=== PATIENT | female | born 1975 | race Caucasian/White ===

== ENCOUNTER 2017-10-01 13:22 | Inpatient (IN) | payer BC ==
[~2017-10-01] VITALS: Ht 170.2 cm; Wt 118.5 kg
[~2017-10-01 13:22] MED LIST: BUTA1CAP31 PO; CAND1TAB2 PO; CLON0.5T3 PO; CRESTOR10 MG PO; CYCL-331 PO; ELET20TA PO; HYDR-971 PO; INSU100V13 SQ; METF500T4 PO; METH-37 PO; METO10TA81 PO; ONDA4TAB10 PO; PRAZ5CAP2 PO; PREG50CA PO; QUIN1TAB PO; SERT100T PO; SERT50TA PO; SITA1TAB11 PO; WARF10TA45 PO
[2017-10-01] MEDS ORDERED: VANCOMYCIN PER PHARMACY MC PRN (15:15)
[2017-10-01] MEDS ORDERED: IV NORMAL SALINE 1,000ML 1,000 ML IV ONE (15:15)
[2017-10-01 15:28] LABS: BASO % 1 % (0-3); EOS % 1 % (0-3); HEMATOCRIT 43.8 % (36.0-47.0); HEMOGLOBIN 14.9 g/dL (12.0-15.5); LYMPH # 1.4 x10^3/uL (1.0-4.8); LYMPH % 22 % (24-48); MEAN CORPUSCULAR HEMOGLOBIN 29 pg (25-35); MEAN CORPUSCULAR HGB CONC 34 g/dL (31-37); MEAN CORPUSCULAR VOLUME 85 fL (79-100); MONO # 0.7 x10^3/uL (0.0-1.1); MONO % 10 % (0-9); NEUT # 4.2 x10^3uL (1.8-7.7); NEUT % 67 % (31-73); PLATELET COUNT 203 x10^3/uL (140-400); RED BLOOD COUNT 5.15 x10^6/uL (3.50-5.40); RED CELL DISTRIBUTION WIDTH 13.8 % (11.5-14.5); WHITE BLOOD COUNT 6.3 x10^3/uL (4.0-11.0)
[2017-10-01] MEDS ORDERED: VANCOMYCIN 2 GM in IV NORMAL SALINE 500ML 500 ML IV ONE ×4 (15:30)
[2017-10-01 15:35] LABS: CALCIUM 9.5 mg/dL (8.5-10.1); CREATININE 0.6 mg/dL (0.6-1.0); GFR 110.2; POTASSIUM 3.8 mmol/L (3.5-5.1)
--- NOTE | 2017-10-01 16:02 | PHYS DOC ---
Past History Past Medical History: Anxiety, Depression, Diabetes, DVT, Gallstones, High Cholesterol, Kidney Stones, Migraines, Ovarian Cyst, Other Past Surgical History: Cholecystectomy, Tonsillectomy, Tubal ligation, Other Alcohol Use: None Drug Use: None Adult General Chief Complaint Chief Complaint: FOOT INJURY PAIN [facility] HPI Patient is a 41 year old F who presents with foot pain. 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 She was given a shot and an oral antibiotic at that time and told that her symptoms should improve however over the past 24-48 hours her symptoms have worsened. She has developed moderate redness swelling and pain over the entire right foot Review of Systems Review of Systems Constitutional: Denies fever or chills [] Eyes: Denies change in visual acuity, redness, or eye pain [] HENT: Denies nasal congestion or sore throat [] Respiratory: Denies cough or shortness of breath [] Cardiovascular: No additional information not addressed in HPI [] GI: Denies abdominal pain, nausea, vomiting, bloody stools or diarrhea [] : Denies dysuria or hematuria [] Musculoskeletal: Denies back pain or joint pain [] Integument: Negative except history of present illness Neurologic: Denies headache, focal weakness or sensory changes [] Endocrine: Denies polyuria or polydipsia [] All other systems were reviewed and found to be within normal limits, except as documented in this note. Family History Family History No pertinent family medical history was reported Current Medications Current Medications Current medications were reviewed Current Medications Medications (Trade) Dose Ordered Sig/Haja Start Time Stop Time Status Last Admin Dose Admin Sodium Chloride 1,000 ml @ 1,000 mls/hr 1X ONCE 10/01/17 15:15 10/01/17 16:14 10/01/17 15:26 1,000 MLS/HR Vancomycin HCl (Vanco Per Pharmacy) 1 each PRN DAILY PRN 10/01/17 15:15 Vancomycin HCl 2 gm/Sodium Chloride 500 ml @ 250 mls/hr 1X ONCE 10/01/17 15:30 10/01/17 17:29 10/01/17 15:41 250 MLS/HR Allergies Allergies Allergies Coded Allergies Type Severity Reaction Last Updated Verified Penicillins Allergy Severe Anaphylaxis 04/30/15 Yes orange Allergy Intermediate Hives 04/30/15 Yes propoxyphene Allergy Intermediate 04/28/16 Yes Physical Exam Physical Exam Constitutional: Well developed, well nourished, no acute distress, non-toxic appearance. [] HENT: Normocephalic, atraumatic, Eyes: EOMI, conjunctiva normal, no discharge. [] Neck: Normal range of motion, no tenderness, supple, no stridor. [] Cardiovascular:Heart rate regular rhythm, no murmur [] Lungs & Thorax: Bilateral breath sounds clear to auscultation [] Abdomen: Bowel sounds normal, soft, no tenderness, no masses, no pulsatile masses. [] Skin: Right foot: Moderate erythema and edema of the entire foot with small laceration noted between the fourth and fifth toe. Laceration was noted to have minimal drainage. Moderate pain was noted. Back: No tenderness, no CVA tenderness. [] Extremities: No tenderness, no cyanosis, no clubbing, ROM intact, no edema. [] Neurologic: Alert and oriented X 3, normal motor function, normal sensory function, no focal deficits noted. [] Psychologic: Affect normal, judgement normal, mood normal. [] Current Patient Data Vital Signs Vital Signs Date Time Temp Pulse Resp B/P (MAP) Pulse Ox O2 Delivery O2 Flow Rate FiO2 10/01/17 13:38 98.8 92 16 98 Room Air Lab Results Laboratory Tests Test 10/01/17 15:13 White Blood Count 6.3 x10^3/uL (4.0-11.0) Red Blood Count 5.15 x10^6/uL (3.50-5.40) Hemoglobin 14.9 g/dL (12.0-15.5) Hematocrit 43.8 % (36.0-47.0) Mean Corpuscular Volume 85 fL (79-100) Mean Corpuscular Hemoglobin 29 pg (25-35) Mean Corpuscular Hemoglobin Concent 34 g/dL (31-37) Red Cell Distribution Width 13.8 % (11.5-14.5) Platelet Count 203 x10^3/uL (140-400) Neutrophils (%) (Auto) 67 % (31-73) Lymphocytes (%) (Auto) 22 % (24-48) L Monocytes (%) (Auto) 10 % (0-9) H Eosinophils (%) (Auto) 1 % (0-3) Basophils (%) (Auto) 1 % (0-3) Neutrophils # (Auto) 4.2 x10^3uL (1.8-7.7) Lymphocytes # (Auto) 1.4 x10^3/uL (1.0-4.8) Monocytes # (Auto) 0.7 x10^3/uL (0.0-1.1) Eosinophils # (Auto) 0.0 x10^3/uL (0.0-0.7) Basophils # (Auto) 0.0 x10^3/uL (0.0-0.2) Sodium Level 137 mmol/L (136-145) Potassium Level 3.8 mmol/L (3.5-5.1) Chloride Level 101 mmol/L (98-107) Carbon Dioxide Level 26 mmol/L (21-32) Anion Gap 10 (6-14) Blood Urea Nitrogen 7 mg/dL (7-20) Creatinine 0.6 mg/dL (0.6-1.0) Estimated GFR (Cockcroft-Gault) 110.2 Glucose Level 299 mg/dL (70-99) H Lactic Acid Level 1.4 mmol/L (0.4-2.0) Calcium Level 9.5 mg/dL (8.5-10.1) EKG EKG [] Radiology/Procedures Radiology/Procedures [] Course & Med Decision Making Course & Med Decision Making Pertinent Labs and Imaging studies reviewed. (See chart for details) [] Dragon Disclaimer Dragon Disclaimer This electronic medical record was generated, in whole or in part, using a voice recognition dictation system. Departure Departure: Impression: Primary Impression: Uncontrolled diabetes mellitus Additional Impressions: Diabetic foot infection Cellulitis Disposition: ADMITTED INPATIENT Referrals: NON,STAFF (PCP) Problem Qualifiers Primary Impression: Uncontrolled diabetes mellitus Diabetes mellitus type: type 2 Diabetes mellitus complication status: with unspecified complications Diabetes mellitus watermelon inspector insulin use: with watermelon inspector use Qualified Codes: E11.8 - Type 2 diabetes mellitus with unspecified complications; E11.65 - Type 2 diabetes mellitus with hyperglycemia; Z79.4 - intermodal customer service (current) use of insulin Additional Impressions: Cellulitis Site of cellulitis: extremity Site of cellulitis of extremity: lower extremity Laterality: right Qualified Codes: L03.115 - Cellulitis of right lower limb YELENA KAY MD Oct 01, 2017 16:02
[2017-10-01] MEDS ORDERED: diphenhydrAMINE 50 MG/ML VIAL IVP ONE (17:30)
[2017-10-01] MEDS ORDERED: ACETAMINOPHEN 325 MG TABLET PO PRN (17:45)
[2017-10-01] MEDS ORDERED: DEXTROSE 50% 25 GM / 50ML DISP.SYRIN. IV PRN (17:45)
[2017-10-01 17:51] VITALS: BP 127/84
[2017-10-01] MEDS ORDERED: WARF7.5T48 PO (18:44)
[2017-10-01] MEDS ORDERED: LISI10TA2 PO (18:44)
[2017-10-01] MEDS ORDERED: METF500T4 PO (18:44)
[2017-10-01] MEDS ORDERED: WARF-78 PO (18:44)
[2017-10-01] MEDS ORDERED: INSU100I13 SQ (19:03)
[2017-10-01] MEDS ORDERED: DIPH25CA58 PO (19:03)
[2017-10-01] MEDS ORDERED: INSU100I17 SQ (19:03)
[2017-10-01] MEDS: VANCOMYCIN PER PHARMACY MC PRN (19:47)
[2017-10-01 19:51] VITALS: BP 122/75
[2017-10-01] MEDS ORDERED: INSULIN DETEMIR 300 UNITS/3 ML INSULN.PEN. SQ SCH (21:00)
[2017-10-01] MEDS: diphenhydrAMINE HCL 25 MG CAPSULE PO PRN (21:15)
[2017-10-01] MEDS: metFORMIN 500 MG TABLET PO SCH (21:16)
[2017-10-01] MEDS: INSULIN ASPART 300 UNITS/3 ML INSULN.PEN SQ SCH (21:18)
[2017-10-01 23:08] VITALS: BP 135/85
[2017-10-01] MEDS ORDERED: traMADol 50 MG TABLET PO PRN (23:30)
[2017-10-02] MEDS: diphenhydrAMINE HCL 25 MG CAPSULE PO PRN ×2 (03:07→15:57)
[2017-10-02] MEDS: VANCOMYCIN 1.75 GM in IV NORMAL SALINE 500ML 500 ML IV SCH ×2 (03:08→15:56)
[2017-10-02 05:35] VITALS: BP 125/82
[2017-10-02 06:46] LABS: BASO % 0 % (0-3); EOS # 0.1 x10^3/uL (0.0-0.7); EOS % 1 % (0-3); HEMATOCRIT 39.8 % (36.0-47.0); HEMOGLOBIN 13.7 g/dL (12.0-15.5); LYMPH # 1.1 x10^3/uL (1.0-4.8); LYMPH % 22 % (24-48); MEAN CORPUSCULAR HEMOGLOBIN 29 pg (25-35); MEAN CORPUSCULAR HGB CONC 34 g/dL (31-37); MEAN CORPUSCULAR VOLUME 85 fL (79-100); MONO # 0.5 x10^3/uL (0.0-1.1); MONO % 9 % (0-9); NEUT # 3.6 x10^3uL (1.8-7.7); NEUT % 68 % (31-73); PLATELET COUNT 175 x10^3/uL (140-400); RED CELL DISTRIBUTION WIDTH 13.5 % (11.5-14.5); WHITE BLOOD COUNT 5.2 x10^3/uL (4.0-11.0)
[2017-10-02 06:54] LABS: CALCIUM 8.4 mg/dL (8.5-10.1); CREATININE 0.6 mg/dL (0.6-1.0); GFR 110.2; POTASSIUM 3.6 mmol/L (3.5-5.1)
[2017-10-02] MEDS: INSULIN ASPART 300 UNITS/3 ML INSULN.PEN SQ SCH ×6 (07:30→21:00)
[2017-10-02] MEDS ORDERED: INSULIN ASPART 300 UNITS/3 ML INSULN.PEN SQ SCH (08:00)
[2017-10-02] MEDS: metFORMIN 500 MG TABLET PO SCH (08:05)
[2017-10-02] MEDS: LISINOPRIL 10 MG TABLET PO SCH (08:05)
[2017-10-02] MEDS ORDERED: IOHEXOL 300 MG/ML 75 ML VIAL. IV ONE (09:30)
[2017-10-02] MEDS ORDERED: MEROPENEM IV Push 1 GM VIAL. IVP SCH (10:00)
--- NOTE | 2017-10-02 10:11 | RAD ---
Indication: Cellulitis, laceration between fourth and fifth toes, swelling, redness Technique: CT of the right foot and ankle with 75 mL of Omnipaque 300 with multi planar reformats. Comparison: None Findings: No acute fracture or dislocation. No cortical erosion or periosteal reaction. No joint space narrowing or productive changes to suggest arthritic process. No discrete fluid collection. No soft tissue gas. Diffuse edema is seen in the dorsum of the foot. No skin ulcerations. No ankle edema. The vessels are patent. Ankle mortise is intact. Impression: Edema of the dorsum of the foot without discrete loculated fluid collection to suggest abscess. No soft tissue gas to suggest necrotizing process. No periosteal reaction or cortical erosion to suggest osteomyelitis.
[2017-10-02] MEDS: CLINDAMYCIN 600MG PREMIX 50 ML IV SCH ×3 (10:33→20:26)
[2017-10-02 11:13] VITALS: BP 118/80
[2017-10-02] MEDS ORDERED: MEROPENEM 1 GM in IV NORMAL SALINE 100ML 100 ML IV SCH (14:00)
[2017-10-02] MEDS ORDERED: HYDROcodone/APAP 5/325MG 1 TAB TABLET PO PRN (14:30)
--- NOTE | 2017-10-02 15:21 | HP ---
ADMIT DATE: 10/02/2017 REASON FOR ADMISSION: Cellulitis of the right foot. HISTORY OF PRESENT ILLNESS: This is a 41-year-old female with type 2 diabetes who was seen by her transplant registered nurse a couple of days ago at [facility]. She was examined. She developed some foot, her foot started hurting her. While at the transplant registered nurse's office, her insulin was adjusted. Then, her foot started hurting her. She did have a cut between her toes. She went to the [facility] ER, she was given a shot of antibiotic and 4 pills. It was worse overnight, so she presented to the Emergency Room at [facility] yesterday. PAST MEDICAL HISTORY: Factor V Leiden, hypertension, DVTs, gallstones, hypercholesterolemia, kidney stones, ovarian cysts, anxiety, depression, fibromyalgia. PAST SURGICAL HISTORY: She has had ear surgery, tonsillectomy, adenoidectomy, thyroid surgery, cholecystectomy, cysts on her ovaries, tubal ligation, lymph node removal. SOCIAL HISTORY: Does not smoke, do drugs or drink. 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 REVIEW OF SYSTEMS: Positive for upper respiratory symptoms. No change in her weight, low grade fever and right foot pain. OBJECTIVE: VITAL SIGNS: Blood pressure 125/82, temperature 98.4, had a 99.9 earlier yesterday evening, blood pressure 118/80. HEENT: TMs: Right TM is dull and retracted. Left TM normal. Nose with swollen turbinates and some rhinorrhea. Throat is clear. She does have a large tongue relative to small posterior pharynx. NECK: Supple without adenopathy. LUNGS: Clear to auscultation. CARDIOVASCULAR: Regular rhythm and rate without murmur. ABDOMEN: Soft, nontender, no masses palpated. EXTREMITIES: Right extremity, very swollen, erythematous, tender, particularly between the fourth and fifth toes. There is a cut there. Pulses are intact. DIAGNOSTIC DATA: CT of the foot reveals no evidence of osteomyelitis or gas gangrene or fasciitis. LABORATORY DATA: CBC normal except for the elevated monocytes. Chemistry: Glucoses 299, 217, 198. INR is 2.6. ASSESSMENT: 1. Cellulitis of the right lower extremity 2. Type 2 diabetes with hyperglycemia. 3. Long-term use of anticoagulants. 4. She is adequately coagulated. 5. Factor V Leiden present on admission. 6. Fibromyalgia. 7. Upper respiratory infection. PLAN: We will give her some Mucinex for upper respiratory infection, IV antibiotics, elevation and controlling her blood sugar. TANYA FRANCO DO DR: JACKLYN/amando JOB#: [id number] / [id number]
[2017-10-02] MEDS ORDERED: WARFARIN 7.5 MG TABLET. PO SCH ×2 (16:00)
[2017-10-02 19:40] VITALS: BP 99/60
[2017-10-02] MEDS ORDERED: INSULIN DETEMIR 300 UNITS/3 ML INSULN.PEN. SQ SCH (21:00)
[2017-10-02] MEDS: KETOROLAC 30 MG/ML VIAL. IV PRN (21:26)
[2017-10-02 22:56] VITALS: BP 102/68
[2017-10-03] MEDS: diphenhydrAMINE HCL 25 MG CAPSULE PO PRN (03:05)
[2017-10-03] MEDS: CLINDAMYCIN 600MG PREMIX 50 ML IV SCH ×3 (03:54→21:34)
[2017-10-03 04:06] LABS: VANC TR 6.2 mcg/mL (10.0-20.0)
[2017-10-03] MEDS: VANCOMYCIN 1.75 GM in IV NORMAL SALINE 500ML 500 ML IV SCH ×3 (04:28→23:18)
[2017-10-03 05:10] VITALS: BP 107/71
[2017-10-03] MEDS: VANCOMYCIN PER PHARMACY MC PRN (07:49)
[2017-10-03] MEDS: LISINOPRIL 10 MG TABLET PO SCH (08:36)
[2017-10-03] MEDS: INSULIN ASPART 300 UNITS/3 ML INSULN.PEN SQ SCH ×7 (08:39→21:00)
[2017-10-03] MEDS ORDERED: HYDROcodone/APAP 10/325 1 TAB TABLET PO PRN (08:45)
[2017-10-03] MEDS ORDERED: HYDROcodone/APAP 5/325MG 1 TAB TABLET PO PRN (08:45)
[2017-10-03 09:38] LABS: BASO % 1 % (0-3); EOS # 0.1 x10^3/uL (0.0-0.7); EOS % 1 % (0-3); HEMATOCRIT 39.1 % (36.0-47.0); HEMOGLOBIN 13.4 g/dL (12.0-15.5); LYMPH # 1.1 x10^3/uL (1.0-4.8); LYMPH % 23 % (24-48); MEAN CORPUSCULAR HEMOGLOBIN 29 pg (25-35); MEAN CORPUSCULAR HGB CONC 34 g/dL (31-37); MEAN CORPUSCULAR VOLUME 85 fL (79-100); MONO # 0.4 x10^3/uL (0.0-1.1); MONO % 8 % (0-9); NEUT # 3.3 x10^3uL (1.8-7.7); NEUT % 68 % (31-73); PLATELET COUNT 159 x10^3/uL (140-400); RED BLOOD COUNT 4.58 x10^6/uL (3.50-5.40); RED CELL DISTRIBUTION WIDTH 13.9 % (11.5-14.5); WHITE BLOOD COUNT 4.8 x10^3/uL (4.0-11.0)
[2017-10-03 09:52] LABS: ALBUMIN 2.4 g/dL (3.4-5.0); ALBUMIN/GLOBULIN RATIO 0.6 (1.0-1.7); CALCIUM 8.3 mg/dL (8.5-10.1); CREATININE 0.7 mg/dL (0.6-1.0); GFR 92.2; MAGNESIUM 1.3 mg/dL (1.8-2.4); POTASSIUM 3.5 mmol/L (3.5-5.1); TOTAL BILIRUBIN 0.3 mg/dL (0.2-1.0); TOTAL PROTEIN 6.2 g/dL (6.4-8.2)
--- NOTE | 2017-10-03 10:09 | PDOC ---
SUBJECTIVE: Some pain issues yesterday evening. Nurses reported her picking at the toe. Has fake fingernails. Discussed this with her. She denies. Toradol Iv was ordered and elevation which helped. OBJECTIVE: Problems: Problems Medical Problems: (1) Cellulitis Status: Acute (2) Diabetic foot infection Status: Acute (3) Uncontrolled diabetes mellitus Status: Acute 1. Cellulitis of the right lower foot with small ulcer between the 4th and 5th toes 2. Type 2 diabetes with hyperglycemia. 3. Long-term use of anticoagulants. 4. She is adequately coagulated. 5. Factor V Leiden present on admission. 6. Fibromyalgia. 7. Upper respiratory infection. 8. Pain management Vital Signs: Vital Signs Date Time Temp Pulse Resp B/P (MAP) Pulse Ox O2 Delivery O2 Flow Rate FiO2 10/03/17 08:50 Room Air 10/03/17 08:36 66 107/71 10/03/17 05:10 98.3 18 94 I & O Intake and Output 10/03/17 07:00 Intake Total 2151 ml Balance 2151 ml Intake Oral 1460 ml IV Total 691 ml # Voids 3 Labs: Laboratory Tests Test 10/01/17 15:13 10/01/17 20:07 10/02/17 06:06 10/02/17 07:39 White Blood Count 6.3 x10^3/uL (4.0-11.0) 5.2 x10^3/uL (4.0-11.0) Red Blood Count 5.15 x10^6/uL (3.50-5.40) 4.70 x10^6/uL (3.50-5.40) Hemoglobin 14.9 g/dL (12.0-15.5) 13.7 g/dL (12.0-15.5) Hematocrit 43.8 % (36.0-47.0) 39.8 % (36.0-47.0) Mean Corpuscular Volume 85 fL (79-100) 85 fL (79-100) Mean Corpuscular Hemoglobin 29 pg (25-35) 29 pg (25-35) Mean Corpuscular Hemoglobin Concent 34 g/dL (31-37) 34 g/dL (31-37) Red Cell Distribution Width 13.8 % (11.5-14.5) 13.5 % (11.5-14.5) Platelet Count 203 x10^3/uL (140-400) 175 x10^3/uL (140-400) Neutrophils (%) (Auto) 67 % (31-73) 68 % (31-73) Lymphocytes (%) (Auto) 22 % (24-48) 22 % (24-48) Monocytes (%) (Auto) 10 % (0-9) 9 % (0-9) Eosinophils (%) (Auto) 1 % (0-3) 1 % (0-3) Basophils (%) (Auto) 1 % (0-3) 0 % (0-3) Neutrophils # (Auto) 4.2 x10^3uL (1.8-7.7) 3.6 x10^3uL (1.8-7.7) Lymphocytes # (Auto) 1.4 x10^3/uL (1.0-4.8) 1.1 x10^3/uL (1.0-4.8) Monocytes # (Auto) 0.7 x10^3/uL (0.0-1.1) 0.5 x10^3/uL (0.0-1.1) Eosinophils # (Auto) 0.0 x10^3/uL (0.0-0.7) 0.1 x10^3/uL (0.0-0.7) Basophils # (Auto) 0.0 x10^3/uL (0.0-0.2) 0.0 x10^3/uL (0.0-0.2) Sodium Level 137 mmol/L (136-145) 139 mmol/L (136-145) Potassium Level 3.8 mmol/L (3.5-5.1) 3.6 mmol/L (3.5-5.1) Chloride Level 101 mmol/L (98-107) 104 mmol/L (98-107) Carbon Dioxide Level 26 mmol/L (21-32) 26 mmol/L (21-32) Anion Gap 10 (6-14) 9 (6-14) Blood Urea Nitrogen 7 mg/dL (7-20) 6 mg/dL (7-20) Creatinine 0.6 mg/dL (0.6-1.0) 0.6 mg/dL (0.6-1.0) Estimated GFR (Cockcroft-Gault) 110.2 110.2 Glucose Level 299 mg/dL (70-99) 264 mg/dL (70-99) Lactic Acid Level 1.4 mmol/L (0.4-2.0) Calcium Level 9.5 mg/dL (8.5-10.1) 8.4 mg/dL (8.5-10.1) Glucose (Fingerstick) 299 mg/dL (70-99) 217 mg/dL (70-99) Prothrombin Time 26.3 SEC (9.4-11.4) Prothromb Time International Ratio 2.6 (0.9-1.1) Test 10/02/17 11:37 10/02/17 16:32 10/02/17 19:52 10/03/17 03:30 Glucose (Fingerstick) 198 mg/dL (70-99) 134 mg/dL (70-99) 208 mg/dL (70-99) Vancomycin Level Trough 6.2 mcg/mL (10.0-20.0) Vancomycin Last Dose Date 10/02/2017 Vancomycin Last Dose Time 1530 Test 10/03/17 07:34 10/03/17 09:30 Glucose (Fingerstick) 266 mg/dL (70-99) White Blood Count 4.8 x10^3/uL (4.0-11.0) Red Blood Count 4.58 x10^6/uL (3.50-5.40) Hemoglobin 13.4 g/dL (12.0-15.5) Hematocrit 39.1 % (36.0-47.0) Mean Corpuscular Volume 85 fL (79-100) Mean Corpuscular Hemoglobin 29 pg (25-35) Mean Corpuscular Hemoglobin Concent 34 g/dL (31-37) Red Cell Distribution Width 13.9 % (11.5-14.5) Platelet Count 159 x10^3/uL (140-400) Neutrophils (%) (Auto) 68 % (31-73) Lymphocytes (%) (Auto) 23 % (24-48) Monocytes (%) (Auto) 8 % (0-9) Eosinophils (%) (Auto) 1 % (0-3) Basophils (%) (Auto) 1 % (0-3) Neutrophils # (Auto) 3.3 x10^3uL (1.8-7.7) Lymphocytes # (Auto) 1.1 x10^3/uL (1.0-4.8) Monocytes # (Auto) 0.4 x10^3/uL (0.0-1.1) Eosinophils # (Auto) 0.1 x10^3/uL (0.0-0.7) Basophils # (Auto) 0.0 x10^3/uL (0.0-0.2) Prothrombin Time 25.3 SEC (9.4-11.4) Prothromb Time International Ratio 2.5 (0.9-1.1) Sodium Level 137 mmol/L (136-145) Potassium Level 3.5 mmol/L (3.5-5.1) Chloride Level 104 mmol/L (98-107) Carbon Dioxide Level 23 mmol/L (21-32) Anion Gap 10 (6-14) Blood Urea Nitrogen 8 mg/dL (7-20) Creatinine 0.7 mg/dL (0.6-1.0) Estimated GFR (Cockcroft-Gault) 92.2 BUN/Creatinine Ratio 11 (6-20) Glucose Level 321 mg/dL (70-99) Calcium Level 8.3 mg/dL (8.5-10.1) Magnesium Level 1.3 mg/dL (1.8-2.4) Total Bilirubin 0.3 mg/dL (0.2-1.0) Aspartate Amino Transf (AST/SGOT) 25 U/L (15-37) Alanine Aminotransferase (ALT/SGPT) 42 U/L (14-59) Alkaline Phosphatase 58 U/L (46-116) Total Protein 6.2 g/dL (6.4-8.2) Albumin 2.4 g/dL (3.4-5.0) Albumin/Globulin Ratio 0.6 (1.0-1.7) Physical Exam: HEENT: Still congested but now starting to be able to bring up her secretions Lungs: Clear to auscultation, positive cough sounds much looser than yesterday Cardiovascular, regular rhythm and rate Right foot decreased swelling and decreased erythema area between the fourth and fifth toes still very painful ,scant drainage ,, char filter tank tender head to touch ASSESSMENT: See above problems PLAN: Continue IV antibiotics, continue portable, discouraged from picking foot, moist packs to foot to encourage drainage, elevate foot. Plan for discharge tomorrow TANYA FRANCO DO Oct 03, 2017 10:09
[2017-10-03 11:32] VITALS: BP 129/79
[2017-10-03] MEDS: KETOROLAC 30 MG/ML VIAL. IV PRN ×2 (15:02→21:30)
[2017-10-03 15:47] VITALS: BP 131/91
[2017-10-03] MEDS ORDERED: WARFARIN 5 MG TABLET. PO SCH ×2 (16:00)
[2017-10-03 19:27] VITALS: BP 137/86
[2017-10-03] MEDS ORDERED: INSULIN DETEMIR 300 UNITS/3 ML INSULN.PEN. SQ SCH (21:00)
[2017-10-03] MEDS: LACTOBACILLUS RHAMNOSUS GG 1 CAPSULE. PO SCH (21:32)
[2017-10-03 23:01] VITALS: BP 148/84
[2017-10-04] MEDS: CLINDAMYCIN 600MG PREMIX 50 ML IV SCH (05:08)
[2017-10-04] MEDS: VANCOMYCIN 1.75 GM in IV NORMAL SALINE 500ML 500 ML IV SCH (05:50)
[2017-10-04] MEDS: KETOROLAC 30 MG/ML VIAL. IV PRN (05:55)
[2017-10-04 06:08] VITALS: BP 142/84
[2017-10-04 06:44] LABS: BASO % 1 % (0-3); EOS % 1 % (0-3); HEMATOCRIT 37.8 % (36.0-47.0); HEMOGLOBIN 13.1 g/dL (12.0-15.5); LYMPH # 1.1 x10^3/uL (1.0-4.8); LYMPH % 18 % (24-48); MEAN CORPUSCULAR HEMOGLOBIN 29 pg (25-35); MEAN CORPUSCULAR HGB CONC 35 g/dL (31-37); MEAN CORPUSCULAR VOLUME 83 fL (79-100); MONO # 0.4 x10^3/uL (0.0-1.1); MONO % 7 % (0-9); NEUT # 4.3 x10^3uL (1.8-7.7); NEUT % 73 % (31-73); PLATELET COUNT 185 x10^3/uL (140-400); RED BLOOD COUNT 4.54 x10^6/uL (3.50-5.40); RED CELL DISTRIBUTION WIDTH 13.6 % (11.5-14.5); WHITE BLOOD COUNT 5.9 x10^3/uL (4.0-11.0)
[2017-10-04 07:06] LABS: ALBUMIN 2.5 g/dL (3.4-5.0); ALBUMIN/GLOBULIN RATIO 0.7 (1.0-1.7); CALCIUM 8.4 mg/dL (8.5-10.1); CREATININE 0.6 mg/dL (0.6-1.0); GFR 110.2; MAGNESIUM 1.3 mg/dL (1.8-2.4); POTASSIUM 3.8 mmol/L (3.5-5.1); TOTAL BILIRUBIN 0.3 mg/dL (0.2-1.0); TOTAL PROTEIN 6.3 g/dL (6.4-8.2)
[2017-10-04 07:58] VITALS: BP 142/84
[2017-10-04] MEDS: LACTOBACILLUS RHAMNOSUS GG 1 CAPSULE. PO SCH (07:58)
[2017-10-04] MEDS: LISINOPRIL 10 MG TABLET PO SCH (07:58)
[2017-10-04] MEDS ORDERED: metFORMIN 500 MG TABLET PO SCH (08:00)
[2017-10-04] MEDS: INSULIN ASPART 300 UNITS/3 ML INSULN.PEN SQ SCH ×2 (08:04→08:05)
[2017-10-04] MEDS ORDERED: INSU100I13 SQ (10:09)
[2017-10-04] MEDS ORDERED: GUAI600T47 PO (10:09)
[2017-10-04] MEDS ORDERED: CLIN300C8 PO (10:09)
[2017-10-04] MEDS ORDERED: INSU100I17 SQ (10:09)
[2017-10-04] MEDS ORDERED: MAGN400T3 PO (10:09)
[2017-10-04] MEDS ORDERED: MAGNESIUM OXIDE 400 MG TABLET PO ONE (10:30)
--- NOTE | 2017-10-04 19:06 | PDOC3 ---
Discharge Summary Visit Information Date of Admission: Oct 01, 2017 Date of Discharge: Oct 04, 2017 Final Diagnosis Problems Medical Problems: (1) Cellulitis Status: Acute (2) Diabetic foot infection Status: Acute (3) Uncontrolled diabetes mellitus Status: Acute 1. Cellulitis of the right lower foot with small ulcer between the 4th and 5th toes 2. Type 2 diabetes with hyperglycemia. 3. Long-term use of anticoagulants. 4. She is adequately coagulated. 5. Factor V Leiden present on admission. 6. Fibromyalgia. 7. Upper respiratory infection. 8. Pain managemen 9. HYPOMAGNESEMIA 10 SLEEP APNEA SUSPECT Problems: Brief Hospital Course Allergies Allergies Coded Allergies Type Severity Reaction Last Updated Verified Penicillins Allergy Severe Anaphylaxis 04/30/15 Yes orange Allergy Intermediate Hives 04/30/15 Yes propoxyphene Allergy Intermediate 04/28/16 Yes Vital Signs Vital Signs Date Time Temp Pulse Resp B/P (MAP) Pulse Ox O2 Delivery O2 Flow Rate FiO2 10/04/17 08:00 Room Air 10/04/17 07:58 82 142/84 10/04/17 06:08 99.2 20 97 Lab Results Laboratory Tests Test 10/02/17 19:52 10/03/17 03:30 10/03/17 07:34 10/03/17 09:30 Glucose (Fingerstick) 208 mg/dL (70-99) 266 mg/dL (70-99) Vancomycin Level Trough 6.2 mcg/mL (10.0-20.0) Vancomycin Last Dose Date 10/02/2017 Vancomycin Last Dose Time 1530 White Blood Count 4.8 x10^3/uL (4.0-11.0) Red Blood Count 4.58 x10^6/uL (3.50-5.40) Hemoglobin 13.4 g/dL (12.0-15.5) Hematocrit 39.1 % (36.0-47.0) Mean Corpuscular Volume 85 fL (79-100) Mean Corpuscular Hemoglobin 29 pg (25-35) Mean Corpuscular Hemoglobin Concent 34 g/dL (31-37) Red Cell Distribution Width 13.9 % (11.5-14.5) Platelet Count 159 x10^3/uL (140-400) Neutrophils (%) (Auto) 68 % (31-73) Lymphocytes (%) (Auto) 23 % (24-48) Monocytes (%) (Auto) 8 % (0-9) Eosinophils (%) (Auto) 1 % (0-3) Basophils (%) (Auto) 1 % (0-3) Neutrophils # (Auto) 3.3 x10^3uL (1.8-7.7) Lymphocytes # (Auto) 1.1 x10^3/uL (1.0-4.8) Monocytes # (Auto) 0.4 x10^3/uL (0.0-1.1) Eosinophils # (Auto) 0.1 x10^3/uL (0.0-0.7) Basophils # (Auto) 0.0 x10^3/uL (0.0-0.2) Prothrombin Time 25.3 SEC (9.4-11.4) Prothromb Time International Ratio 2.5 (0.9-1.1) Sodium Level 137 mmol/L (136-145) Potassium Level 3.5 mmol/L (3.5-5.1) Chloride Level 104 mmol/L (98-107) Carbon Dioxide Level 23 mmol/L (21-32) Anion Gap 10 (6-14) Blood Urea Nitrogen 8 mg/dL (7-20) Creatinine 0.7 mg/dL (0.6-1.0) Estimated GFR (Cockcroft-Gault) 92.2 BUN/Creatinine Ratio 11 (6-20) Glucose Level 321 mg/dL (70-99) Calcium Level 8.3 mg/dL (8.5-10.1) Magnesium Level 1.3 mg/dL (1.8-2.4) Total Bilirubin 0.3 mg/dL (0.2-1.0) Aspartate Amino Transf (AST/SGOT) 25 U/L (15-37) Alanine Aminotransferase (ALT/SGPT) 42 U/L (14-59) Alkaline Phosphatase 58 U/L (46-116) Total Protein 6.2 g/dL (6.4-8.2) Albumin 2.4 g/dL (3.4-5.0) Albumin/Globulin Ratio 0.6 (1.0-1.7) Test 10/03/17 11:58 10/03/17 16:38 10/03/17 21:05 10/04/17 06:14 Glucose (Fingerstick) 246 mg/dL (70-99) 80 mg/dL (70-99) 236 mg/dL (70-99) White Blood Count 5.9 x10^3/uL (4.0-11.0) Red Blood Count 4.54 x10^6/uL (3.50-5.40) Hemoglobin 13.1 g/dL (12.0-15.5) Hematocrit 37.8 % (36.0-47.0) Mean Corpuscular Volume 83 fL (79-100) Mean Corpuscular Hemoglobin 29 pg (25-35) Mean Corpuscular Hemoglobin Concent 35 g/dL (31-37) Red Cell Distribution Width 13.6 % (11.5-14.5) Platelet Count 185 x10^3/uL (140-400) Neutrophils (%) (Auto) 73 % (31-73) Lymphocytes (%) (Auto) 18 % (24-48) Monocytes (%) (Auto) 7 % (0-9) Eosinophils (%) (Auto) 1 % (0-3) Basophils (%) (Auto) 1 % (0-3) Neutrophils # (Auto) 4.3 x10^3uL (1.8-7.7) Lymphocytes # (Auto) 1.1 x10^3/uL (1.0-4.8) Monocytes # (Auto) 0.4 x10^3/uL (0.0-1.1) Eosinophils # (Auto) 0.0 x10^3/uL (0.0-0.7) Basophils # (Auto) 0.0 x10^3/uL (0.0-0.2) Sodium Level 138 mmol/L (136-145) Potassium Level 3.8 mmol/L (3.5-5.1) Chloride Level 105 mmol/L (98-107) Carbon Dioxide Level 25 mmol/L (21-32) Anion Gap 8 (6-14) Blood Urea Nitrogen 6 mg/dL (7-20) Creatinine 0.6 mg/dL (0.6-1.0) Estimated GFR (Cockcroft-Gault) 110.2 BUN/Creatinine Ratio 10 (6-20) Glucose Level 241 mg/dL (70-99) Calcium Level 8.4 mg/dL (8.5-10.1) Magnesium Level 1.3 mg/dL (1.8-2.4) Total Bilirubin 0.3 mg/dL (0.2-1.0) Aspartate Amino Transf (AST/SGOT) 23 U/L (15-37) Alanine Aminotransferase (ALT/SGPT) 41 U/L (14-59) Alkaline Phosphatase 59 U/L (46-116) Total Protein 6.3 g/dL (6.4-8.2) Albumin 2.5 g/dL (3.4-5.0) Albumin/Globulin Ratio 0.7 (1.0-1.7) Test 10/04/17 07:37 Glucose (Fingerstick) 216 mg/dL (70-99) Brief Hospital Course Ms. Gee is a 41 old [sex] who presented with [ ]-old female with type 2 diabetes who was seen by her channel director a couple of days ago at [place]. She was examined. She developed some foot, her foot started hurting her. While at the channel director's office, her insulin was adjusted. Then, her foot started hurting her. She did have a cut between her toes. She went to the [place] ER, she was given a shot of antibiotic and 4 pills. It was worse overnight, so she presented to the Emergency Room at [facility] yesterday.SHE WAS TREATED WITH IV ANTIBIOTS AND WARM SOAKS TO THE OPEN AREA. HER PAIN WAS MANAGED WITH TORADOL AND HYDROCODONE. SHE FAILED HER NOCTURNAL OXIMITRY AND WILL NEED A FORMAL SLEEP STUDY. Discharge Information Condition at Discharge: Improved, Stable Disposition/Orders: D/C to Home Dischare Medications Current Medications Sodium Chloride 1,000 ml @ 1,000 mls/hr 1X ONCE IV Last administered on at 15:26; Start 10/01/17 at 15:15; Stop 10/01/17 at 16:14; Status DC Vancomycin HCl (Vanco Per Pharmacy) 1 each PRN DAILY PRN MC SEE COMMENTS; Start 10/01/17 at 15:15; Stop 10/01/17 at 17:53; Status DC Vancomycin HCl 2 gm/Sodium Chloride 500 ml @ 250 mls/hr 1X ONCE IV ; Start 10/01/17 at 15:30; Stop 10/01/17 at 17:29; Status Cancel Vancomycin HCl 2 gm/Sodium Chloride 500 ml @ 250 mls/hr 1X ONCE IV Last administered on 10/01/17at 15:41; Start 10/01/17 at 15:30; Stop 10/01/17 at 17:29; Status DC Diphenhydramine HCl (Benadryl) 25 mg 1X ONCE IVP Last administered on at 17:12; Start 10/01/17 at 17:30; Stop 10/01/17 at 17:31; Status DC Insulin Aspart (NovoLOG) 0-5 UNITS QIDACHS SQ Last administered on 10/04/17at 08 :04; Start 10/01/17 at 21:00; Stop 10/04/17 at 11:32; Status DC Dextrose 12.5 gm PRN Q15MIN PRN IV SEE COMMENTS; Start 10/01/17 at 17:45; Stop 10/04/17 at 11:32; Status DC Acetaminophen (Tylenol) 650 mg PRN Q6HRS PRN PO PAIN / TEMP Last administered on 10/01/17at 19:29; Start 10/01/17 at 17:45; Stop 10/04/17 at 11:32; Status DC Vancomycin HCl (Vanco Per Pharmacy) 1 each PRN DAILY PRN MC SEE COMMENTS Last administered on 10/03/17at 07:49; Start 10/01/17 at 17:45; Stop 10/04/17 at 11:32 ; Status DC Warfarin Sodium (Coumadin Per Pharmacy) 1 each PRN DAILY PRN MC SEE COMMENTS Last administered on 10/02/17at 14:27; Start 10/01/17 at 17:45; Stop 10/04/17 at 11:32; Status DC Vancomycin HCl 1.75 gm/Sodium Chloride 500 ml @ 250 mls/hr Q12H IV Last administered on 10/03/17at 04:28; Start 10/02/17 at 03:30; Stop 10/03/17 at 07:25 ; Status DC Vancomycin HCl 1 each 1X ONCE MC Last administered on 10/03/17at 03:00; Start 10/03/17 at 03:00; Stop 10/03/17 at 03:02; Status DC Diphenhydramine HCl (Benadryl) 25 mg PRN Q6HRS PRN PO ITCHING Last administered on 10/03/17at 03:05; Start 10/01/17 at 19:00; Stop 10/04/17 at 11:32 ; Status DC Insulin Aspart (NovoLOG) 30 units TIDWMEALS SQ ; Start 10/02/17 at 08:00; Stop 10/02/17 at 08:04; Status DC Lisinopril (Prinivil) 10 mg DAILY PO Last administered on 10/04/17at 07:58; Start 10/02/17 at 09:00; Stop 10/04/17 at 11:32; Status DC Metformin HCl (Glucophage) 500 mg BID PO Last administered on 10/02/17at 08:05; Start 10/01/17 at 21:00; Stop 10/02/17 at 09:49; Status DC Warfarin Sodium (Coumadin) 5 mg QTUTHSASU PO ; Start 10/03/17 at 16:00; Stop 08/10 at 16:00; Status DC Warfarin Sodium (Coumadin) 7.5 mg QMWF PO ; Start 10/02/17 at 16:00; Stop at 16:00; Status DC Insulin Detemir (Levemir) 20 units QHS SQ Last administered on 10/01/17at 21:17; Start 10/01/17 at 21:00; Stop 10/02/17 at 08:04; Status DC Tramadol HCl (Ultram) 50 mg PRN Q6HRS PRN PO MODERATE PAIN Last administered on 10/01/17at 23:35; Start 10/01/17 at 23:30; Stop 10/03/17 at 08:40; Status DC Insulin Aspart (NovoLOG) 32 units TIDWMEALS SQ Last administered on 10/04/17at 08:05; Start 10/02/17 at 12:00; Stop 10/04/17 at 11:32; Status DC Insulin Detemir (Levemir) 22 units QHS SQ Last administered on 10/02/17at 21:43 ; Start 10/02/17 at 21:00; Stop 10/03/17 at 10:03; Status DC Warfarin Sodium (Coumadin) 7.5 mg QMWF PO Last administered on 10/02/17at 15:56 ; Start 10/02/17 at 16:00; Stop 10/04/17 at 11:32; Status DC Warfarin Sodium (Coumadin) 5 mg QTUTHSASU PO Last administered on 10/03/17at 16: 46; Start 10/03/17 at 16:00; Stop 10/04/17 at 11:32; Status DC Iohexol (Omnipaque 300 Mg/ml) 75 ml 1X ONCE IV Last administered on 10/02/17at 09:35; Start 10/02/17 at 09:30; Stop 10/02/17 at 09:48; Status DC Meropenem 1 gm/ Sodium Chloride 100 ml @ 200 mls/hr Q8HRS IV ; Start 10/02/17 at 14:00; Status UNV Metformin HCl (Glucophage) 500 mg BIDWMEALS PO Last administered on 10/04/17at 07:58; Start 10/04/17 at 08:00; Stop 10/04/17 at 11:32; Status DC Meropenem (Merrem) 1 gm Q8H IVP ; Start 10/02/17 at 10:00; Status Cancel Clindamycin Phosphate 50 ml @ 100 mls/hr Q8H IV Last administered on at 10:33; Start 10/02/17 at 10:00; Stop 10/02/17 at 19:19; Status DC Acetaminophen/ Hydrocodone Bitart (Lortab 5/325) 1 tab PRN Q6HRS PRN PO PAIN; Start 10/02/17 at 14:30; Stop 10/03/17 at 08:40; Status DC Clindamycin Phosphate 50 ml @ 100 mls/hr Q8H IV Last administered on at 05:08; Start 10/02/17 at 20:30; Stop 10/04/17 at 11:32; Status DC Ketorolac Tromethamine (Toradol) 30 mg PRN Q6HRS PRN IV PAIN Last administered on 10/04/17at 05:55; Start 10/02/17 at 21:00; Stop 10/04/17 at 11:32; Status DC Guaifenesin (Mucinex Er) 1,200 mg BID PO Last administered on 10/04/17at 07:58; Start 10/02/17 at 21:00; Stop 10/04/17 at 11:32; Status DC Vancomycin HCl 1.75 gm/Sodium Chloride 500 ml @ 250 mls/hr Q8H IV Last administered on 10/04/17at 05:50; Start 10/03/17 at 13:00; Stop 10/04/17 at 11:32 ; Status DC Vancomycin HCl 1 each 1X ONCE MC ; Start 10/04/17 at 12:30; Stop 10/04/17 at 12 :30; Status DC Acetaminophen/ Hydrocodone Bitart (Lortab 5/325) 1 tab PRN Q6HRS PRN PO PAIN Last administered on 10/03/17at 21:32; Start 10/03/17 at 08:45; Stop 10/04/17 at 11:32; Status DC Acetaminophen/ Hydrocodone Bitart (Lortab 10/325) 1 tab PRN Q6HRS PRN PO PAIN; Start 10/03/17 at 08:45; Stop 10/04/17 at 11:32; Status DC Insulin Detemir (Levemir) 25 units QHS SQ Last administered on 10/03/17at 21:40 ; Start 10/03/17 at 21:00; Stop 10/04/17 at 11:32; Status DC Lactobacillus Rhamnosus (Culturelle) 1 cap BID PO Last administered on at 07:58; Start 10/03/17 at 21:00; Stop 10/04/17 at 11:32; Status DC Magnesium Oxide (Magnesium Oxide) 400 mg 1X ONCE PO Last administered on at 10:32; Start 10/04/17 at 10:30; Stop 10/04/17 at 10:31; Status DC Active Scripts Active Magnesium Oxide 400 Mg Tablet 1 Tab PO DAILY Mucinex (Guaifenesin) 600 Mg Tablet.er 1,200 Mg PO BID 7 Days Clindamycin Hcl 300 Mg Capsule 1 Cap PO TID Lantus Solostar (Insulin Glargine,Hum.rec.anlog) 100 Unit/1 Ml Insuln.pen 25 Unit SQ QHS 30 Days LAST DOSE GIVEN: DATE: TIME: NEXT DOSE DUE: DATE: TIME: Novolog Flexpen (Insulin Aspart) 100 Unit/1 Ml Insuln.pen 32 Unit SQ TIDWMEALS 30 Days LAST DOSE GIVEN: DATE: TIME: NEXT DOSE DUE: DATE: TIME: Reported Benadryl (Diphenhydramine Hcl) 25 Mg Capsule 1 Cap PO Q6HRS PRN LAST DOSE GIVEN: DATE: NOT GIVEN TODAY NEXT DOSE DUE: DATE: JANUARY TAKE TIME: IF AND WHEN NEEDED Coumadin (Warfarin Sodium) 7.5 Mg Tablet 1 Tab PO QMWF LAST DOSE GIVEN: DATE: YESTERDAY TIME: 4 PM NEXT DOSE DUE: DATE: TODAY'S DOSE TIME: AT 4 PM Coumadin (Warfarin Sodium) 5 Mg Tablet 1 Tab PO QTUTHSASU LAST DOSE GIVEN: DATE: YESTERDAY TIME: AT 4 PM NEXT DOSE DUE: DATE: TODAY'S DOSE TIME: AT 4 PM Metformin Hcl 500 Mg Tablet 1 Tab PO BID LAST DOSE GIVEN: DATE: TODAY TIME: WITH BREAKFAST NEXT DOSE DUE: DATE: TODAY TIME: WITH DINNER Lisinopril 10 Mg Tablet 1 Tab PO DAILY LAST DOSE GIVEN: DATE: TODAY TIME: AM NEXT DOSE DUE: DATE: TOMORR TIME: AM Patient Instructions Patient Instuctions SHE WILL NEED A FORMAL SLEEP STUDY AND AN APPOINTMENT WAS M[facility]. HER WOUND WAS DRESSED WITH AQUAFOAM AG. sHE WILL CONTINUE WITH A COURSE OF ORAL ANTIBIOTICS. TANYA FRANCO DO Oct 04, 2017 19:06
== END 2017-10-04 11:25 | disposition home or self-care (01) | DRG 638 ==
LOC: ER 13:22 → 1 SOUTH 16:30 → OBSVTOIN 10-02 07:59
PROVIDERS: ADMIT Family Medicine; ATTEND Family Medicine
DX: E11.628 Type 2 diabetes mellitus with other skin complications (principal); L03.115 Cellulitis of right lower limb; L97.519 Non-pressure chronic ulcer of other part of right foot with unspecified severity; D68.51 Activated protein C resistance; E11.621 Type 2 diabetes mellitus with foot ulcer; E11.65 Type 2 diabetes mellitus with hyperglycemia; E83.42 Hypomagnesemia; E78.00 Pure hypercholesterolemia, unspecified; G47.30 Sleep apnea, unspecified; F32.9 Major depressive disorder, single episode, unspecified; F41.9 Anxiety disorder, unspecified; G43.909 Migraine, unspecified, not intractable, without status migrainosus; I10 Essential (primary) hypertension; J06.9 Acute upper respiratory infection, unspecified; M79.7 Fibromyalgia; Z79.01 Long term (current) use of anticoagulants; Z87.442 Personal history of urinary calculi; Z86.718 Personal history of other venous thrombosis and embolism; Z90.49 Acquired absence of other specified parts of digestive tract; Z98.51 Tubal ligation status; Z88.0 Allergy status to penicillin; Z88.8 Allergy status to other drugs, medicaments and biological substances
CPT/HCPCS: 36415; 73701; 80048; 80053; 80202; 82947; 83605; 83735; 85025; 85610; 87040; 87070; 94799; 96365; 96366; 96375; G0378; G0379; J1200; J1815; J1885; J3370; J3490; J7040; Q0163; Q9967; 99285-25; J7030